=== PATIENT | male | born 1985 | race Caucasian/White ===

== ENCOUNTER 2017-06-07 21:32 | Emergency (ER) | payer OTHER ==
[~2017-06-07] VITALS: Ht 198.1 cm; Wt 106.8 kg
[~2017-06-07 21:32] MED LIST: ARIP5TAB5 PO; CLON0.1T14 PO; KLO1T PO; LITH300T PO; ROB500 PO; ZLP5T PO
[2017-06-07 21:36] VITALS: BP 144/93; PULSE 101; RESP 18; O2SAT 98
[2017-06-07] MEDS ORDERED: OLANZapine Zydis ODT 5 mg Tablet PO ONE (23:10)
--- NOTE | 2017-06-07 23:36 | ED.REPORT ---
HPI-Psychiatric Illness Date of Service Jun 07, 2017 ED Provider: Julian Daugherty MD A 31 year old male with a history of anxiety, schizophrenia and depression presents to the ED for a mental health evaluation. He presents with worsening anxiety secondary to substance abuse this evening. Patient reports recent insomnia which has exacerbated his anxiety. He admits to recent cocaine, EtOH, THC and cigarettes use over the past few days. Upon initial exam, the patient is expressing paranoid delusions about people wanting to harm him and lists the names of individuals who will confirm his story. He denies any suicidal ideation or homicidal ideation. Patient is a poor historian. Nursing Notes Stated Complaint: MENTAL STRESS,CANT EAT,CANT SLEEP Chief Complaint: Substance Abuse Nursing Notes Reviewed: Yes Allergies: Coded Allergies: No Known Allergies (Unverified , 06/07/17) Scheduled Aripiprazole (Abilify) 5 Mg Tablet 15 MG PO HS Clonazepam (Clonazepam) 1 Mg Tablet 1 MG PO TID Clonidine (Catapres) 0.1 Mg Tablet 0.3 MG PO BID [place] Carbonate ([place] Carbonate) 300 Mg Tablet 900 MG PO BID Scheduled PRN Clonazepam (Clonazepam) 1 Mg Tablet 1 MG PO TID PRN PRN For Anxiety or Agitation Clonidine (Catapres) 0.1 Mg Tablet 0.1 MG PO BID PRN PRN Formication (skin crawling) Methocarbamol (Methocarbamol) 500 Mg Tablet 1,000 MG PO QID PRN PRN For Spasm Zolpidem (Ambien) 5 Mg Tablet 5-10 MG PO HS PRN PRN Insomnia General Time Seen by MD: 23:08 Chief Complaint Paranoid Hx Obtained From: Patient Arrived By: Walk-in Onset Occurred: Just prior to arrival Context of Onset: Illicit drug use Symptom Duration: Since onset Progression Since Onset: Unchanged Associated with: Reports: Anxiety, Delusions, Illicit drug use, Paranoia Pertinent Negative: Pt denies other symptoms Recent Healthcare: No recent doctor visit, No recent hospitalization Risk-Psychiatric Illness Suicide Risk Stratification RF Statements: Risk factors reviewed Past Medical History Past Medical History Notes: Patient was seen in 2003 for visual and auditory hallucinations following hallucinogenic mushroom use. Patient became combative when his parents tried to intervene. Given Bipolar Disorder diagnosis by Primary Care Physician previously. Past Medical History Anxiety Schizophrenia Depression Past Surgical History None reported Smoking History Current Every Day Smoker Social History Previous Methamphetamine and Heroin use. Drug Use: Cocaine, IV drugs, Meth, THC, Other Other Social History: Good social support, Local resident Ambulatory Status Independent Review of Systems Psychiatric: Reports: Anxiety, Delusional, Depression, Insomnia, Denies: Homicidal ideation, Suicidal ideation Complete sys rev & neg: except as marked. Physical Exam Initial Vital Signs Vital Signs (First) Date Time Temp Pulse Resp B/P Pulse Ox O2 Delivery O2 Flow Rate FiO2 06/07/17 21:36 36.6 101 18 144/93 98 Room Air Initial VS: Reviewed Head / Eyes: Atraumatic, Normocephalic, PERRL Neck: Supple, Non-tender, Full range of motion Extremities: Vascular intact, Neuro intact, No swelling, No tenderness Skin: Warm, Dry, No cyanosis General/Constitutional: Awake, Alert, No acute distress Neurologic: Oriented X3, Speech NL, No motor deficits, No sensory deficits, CN II - XII intact, Reflexes equal bilat Psychiatric: Not suicidal, Not homicidal Abnormal Thinking / Perception: Positive: Delusions - paranoid, Flight of ideas , Insight abnormal, Judgment abnormal, Loose associations, Tangential thinking Respiratory / Chest: Atraumatic, Breath sounds NL, Breath sounds = bilat, No respiratory distress Cardiovascular: Heart rate NL, Regular rhythm, Heart sounds NL Abdomen: Atraumatic, Soft Interpretation & Diagnostics Lab Results Interpretation Result Diagram: 06/07/17 2350 06/07/17 2350 Test 06/07/17 23:12 06/07/17 23:50 Hold Urine Received (Received) White Blood Count 6.4th/mm3 (3.8-10.1) Red Blood Count 4.71mil/mm3 (4.40-5.80) Hemoglobin 15.0g/dL (13.8-17.2) Hematocrit 42.9% (41.0-50.0) Mean Corpuscular Volume 91.1fL (81-100) Mean Corpuscular Hemoglobin 31.8pg (27.0-35.0) Mean Corpuscular Hemoglobin Concent 35.0% (32.0-37.0) Red Cell Distribution Width 12.3% (12.3-15.4) Platelet Count 246bil/L (150-400) Neutrophils (%) (Auto) 44.0% (40-74) Lymphocytes (%) (Auto) 43.7% (14-46) Monocytes (%) (Auto) 11.3% (4-12) Eosinophils (%) (Auto) 0.2% (0-5) Basophils (%) (Auto) 0.6% (0-3) Sodium Level 139mEq/L (134-144) Potassium Level 3.8mEq/L (3.5-5.2) Chloride Level 101mEq/L (97-108) Carbon Dioxide Level 21mmol/L (18-29) Blood Urea Nitrogen 10mg/dL (6-20) Creatinine 0.86mg/dL (0.76-1.27) Estimat Glomerular Filtration Rate 110mL/min (>59) Glucose Level 121mg/dL (60-99) Calcium Level 8.9mg/dL (8.5-10.1) Total Bilirubin 0.6mg/dL (0.0-1.2) Aspartate Amino Transf (AST/SGOT) 54U/L (0-50) Alanine Aminotransferase (ALT/SGPT) 44U/L (0-44) Alkaline Phosphatase 86U/L (25-150) Total Protein 7.4g/dL (6.4-8.4) Albumin 4.6g/dL (3.4-5.0) Thyroid Stimulating Hormone (TSH) 0.732uIU/mL (0.450-4.500) Hold [place] Top Tube Received (Received) Drug Screen / Level Interp Urine positive THC Re-Eval/Medical Decision Med Decision/Clinical Course History of schizophrenia presents with acute psychosis. He is quite paranoid and delusional. He had been using cocaine this afternoon. Laboratory is remarkable for cocaine and marijuana on his drug screen and no other abnormalities. Because he self presented he was considered voluntary by the [facility] triage center so the DCR was not dispatch. He will be evaluated this morning by the mental health worker here in the emergency room and disposition made. Re-Evaluation/Progress : Time of Eval: 02:33 Re-Evaluation/Progress Note: Patient is resting comfortably upon recheck. [facility] felt represented voluntary - refused to dispatch DCR Symptoms improved following extra dose of Zyprexa and Zofran. He is informed of the plan to meet with [facility] [facility] in the morning. Counseled Regarding: Diagnosis, Lab results Discharge & Departure Shift Change Sign-Out Patient Care Transferred: Yes Discussed Complaint(s): Yes Laboratory Evaluation: Lab evaluation discussed Additonal Information: Dr. Elysia Croft Impression: Primary Impression: Acute psychosis Additional Impression: Cocaine abuse Discharge Condition All VS Reviewed: Yes Condition: Stable Referrals: [facility] (PCP) [facility] Care Transferred to: Dr. Elysia Croft Care Transferred at: 06:00 Scribe Attestation Portions of this note were transcribed by Emily Arevalo. I, Dr. Daugherty personally performed the history, physical exam and medical decision-making; I reviewed and confirmed the accuracy of the information in the transcribed note. Julian Daugherty MD Jun 07, 2017 23:36 EMILY AREVALO Jun 08, 2017 00:01
[2017-06-08 00:04] LABS: Mean Corpuscular Hemoglobin 31.8 pg (27.0-35.0); Mean Corpuscular Volume 91.1 fL (81-100); Platelet Count 246 bil/L (150-400)
[2017-06-08 00:05] LABS: BASOPHILS % (AUTO) 0.6 % (0-3); EOSINOPHILS % (AUTO) 0.2 % (0-5); MONOCYTES % (AUTO) 11.3 % (4-12)
[2017-06-08] MEDS ORDERED: OLANZapine Zydis ODT 5 mg Tablet PO ONE (00:25)
[2017-06-08] MEDS ORDERED: LORazepam 2 mg Tablet PO ONE ×2 (00:25→03:05)
== END 2017-06-08 12:13 | disposition home or self-care (01) ==
LOC: SED 21:32
DX: F23 Brief psychotic disorder (principal); F14.10 Cocaine abuse, uncomplicated; F41.9 Anxiety disorder, unspecified; F20.9 Schizophrenia, unspecified; F32.9 Major depressive disorder, single episode, unspecified; F17.200 Nicotine dependence, unspecified, uncomplicated